=== PATIENT | male | born 1995 | race African-American/Black ===

== ENCOUNTER 2018-02-20 02:56 | Emergency (ER) | payer BC, SELFPAY ==
[2018-02-20] MEDS ORDERED: Lidocaine 1% PF 5 ML VIAL ONE (03:15)
[2018-02-20] MEDS ORDERED: Bacitracin Zinc 1 Packet ONE (04:01)
== END 2018-02-20 04:05 | disposition home or self-care (01) ==
LOC: ERS 02:56
DX: S81.012A Laceration without foreign body, left knee, initial encounter (principal); Y00.XXXA Assault by blunt object, initial encounter
CPT/HCPCS: 12001; J2001

== ENCOUNTER 2018-03-02 12:09 | Emergency (ER) | payer BC | END 2018-03-02 12:29 | disposition home or self-care (01) | LOC: ERS 12:09 | DX: S81.012D Laceration without foreign body, left knee, subsequent encounter (principal) ==